=== PATIENT | male | born 1990 | race Caucasian/White ===

== ENCOUNTER 2021-01-10 12:50 | Emergency (ER) | payer OTHER ==
--- NOTE | 2021-01-10 12:59 | ED Physician Documentation ---
History of Present Illness - Stated complaint Stated Complaint: SI - History obtained from History obtained from: Patient - Additonal information Additional information: 30-year-old gentleman, active duty in the [place]. During the recent deployment he found out his was cheating on him. He returned from deployment early. It came to a head because he had hidden the go pro under their bed and she found it which led to disagreements and subsequently his 5-year-old told him that his 's suitor had spent at least 3 nights at the house while he was deployed. Subsequently he held a loaded gun to his head but states he is not currently suicidal. It was just a brief lapse of judgment. Review of Systems Ten Systems: 10 systems reviewed and negative Constitutional: reports: Reviewed and negative Eyes: reports: Reviewed and negative PD PAST MEDICAL HISTORY - Allergies Allergies/Adverse Reactions: Allergies Allergy/AdvReac Type Severity Reaction Status Date / Time No Known Drug Allergies Allergy Verified 01/10/21 13:06 PD ED PE NORMAL - Vitals Vital signs reviewed: Yes - General General: Alert and oriented X 3, Other (Tearful) - HEENT HEENT: PERRL, EOMI - Neck Neck: Supple, no meningeal sign, No bony TTP - Cardiac Cardiac: RRR, No murmur - Respiratory Respiratory: No respiratory distress, Clear bilaterally - Abdomen Abdomen: Normal bowel sounds, Soft, Non tender - Back Back: No CVA TTP, No spinal TTP - Derm Derm: Normal color, Warm and dry - Extremities Extremities: No edema, No calf tenderness / cord - Neuro Neuro: Alert and oriented X 3, Normal speech - Psych Psych: Normal affect (appropriate), Other (Sad mood, tearful, good eye contact) Results - Vitals Vitals: Vital Signs - 24 hr 01/10/21 13:01 Temperature 37.0 C Heart Rate 115 H Respiratory 18 Rate Blood Pressure 143/89 H O2 Saturation 96 Oxygen O2 Source Room air PD MEDICAL DECISION MAKING - ED course ED course: Seen by HOLLEY Rowe, patient had no intention of self-harm was just trying to scare his . He contracted for safety. She will work on getting him a counseling appointment and a place to stay. He no longer has access to the firearm. Departure - Departure Disposition: 01 Home, Self Care Clinical Impression: Suicide gesture Condition: Good Record reviewed to determine appropriate education?: Yes Instructions: ED Stress React Comments: Follow the instructions the social media campaign manager regarding follow-up, stay away from firearms. Return if worsening.
[2021-01-10 15:43] VITALS: BP 128/89
== END 2021-01-10 16:46 | disposition home or self-care (01) ==
LOC: EDBD → ED 12:50
DX: R45.851 Suicidal ideations (principal)
CPT/HCPCS: 99283